=== PATIENT | female | born 1945 | race Caucasian/White ===

== ENCOUNTER → 2016-10-28 | Outpatient (CLI) | payer MEDICARE, OTHER | END | disposition disaster alternative care site (69) | LOC: GBCOE 13:17 → GRAD 14:00 | DX: Z12.31 Encounter for screening mammogram for malignant neoplasm of breast (principal); J84.10 Pulmonary fibrosis, unspecified; K44.9 Diaphragmatic hernia without obstruction or gangrene; K76.89 Other specified diseases of liver; R91.8 Other nonspecific abnormal finding of lung field | CPT/HCPCS: G0202 ==